=== PATIENT | female | born 2000 ===

== ENCOUNTER → 2020-03-02 | Outpatient (CLI) | payer SELFPAY | END | disposition home or self-care (01) | LOC: LAB 17:18 → LAB SHORT 17:18 | DX: R07.0 Pain in throat (principal) | CPT/HCPCS: 87081; 87147 ==

== ENCOUNTER → 2020-09-15 | Outpatient (CLI) | payer OTHER | END | disposition home or self-care (01) | LOC: LAB SHORT 07:56 → LAB EV 07:56 | DX: R59.0 Localized enlarged lymph nodes (principal) | CPT/HCPCS: 87081 ==